=== PATIENT | male | born 1955 | race Caucasian/White ===

== ENCOUNTER 2017-11-04 11:54 | Inpatient (IN) | payer OTHER ==
[2017-11-04 12:31] LABS: PLATELET COUNT 504 10^3/uL (150-400)
[2017-11-04] MEDS ORDERED: NS 1,000 ML IV ONE ×3 (12:40→15:30)
[2017-11-04] MEDS ORDERED: IOPAMIDOL (ISOVUE-300) 100 ML BTL ONE (13:13)
--- NOTE | 2017-11-04 13:21 | EDPHY ---
H & P Stated Complaint: Constipation Time Seen by Provider: 11/04/17 12:08 HPI/ROS: This patient reports crampy abdominal pain starting 8 days prior to arrival with decreased appetite. Prior to that he had had 1 month history of loose stools 6 times a day and then for 2 weeks described small amount of bright red blood per rectum. Over the past week he has been unable to pass much stool. He had a very small bowel movement yesterday. He reports abdominal distension over this week gradually increasing in size and reports generalized crampy discomfort currently at a level of 2/10 in intensity. He vomited at nighttime after dinner for the last 5 nights. He still tolerating some breakfast and lunch but has decreased appetite. His brought him in for evaluation of the symptoms by private vehicle today. ROS: No fevers chills or other constitutional symptoms HEENT: No URI symptoms Pulmonary: No shortness of breath chest pain Cardiovascular: No chest pain or heart palpitations or lightheadedness. No lower extremity swelling GI: He reports minimal flatus over the past week. Other GI symptoms as per HPI : No testicular pain or swelling. No dysuria frequency urgency. No hematuria. Integumentary: No skin rash Endocrine: No complaints Psychiatric: No complaints Complete review of symptoms is otherwise negative. Source: Patient - Personal History Current Tetanus Diphtheria and Acellular Pertussis (TDAP): Yes - Medical/Surgical History PMH: Otherwise healthy Splenic injury with splenectomy at age 10 He has never had a colonoscopy. Hx Asthma: No Hx Chronic Respiratory Disease: No Hx Diabetes: No Hx Cardiac Disease: No Hx Renal Disease: No Hx Cirrhosis: No Hx Alcoholism: No Hx HIV/AIDS: No Hx Splenectomy or Spleen Trauma: Yes Other PMH: Spleenectomy, tonsils removed, - Family History Significant Family History: No pertinent family hx - Social History Smoking Status: Never smoked Alcohol Use: Rarely Drug Use: None - Physical Exam Exam: Normal vital signs General Appearance: Alert, no distress. Eyes: Pupils equal and round no pallor or injection. ENT, Mouth: Mucous membranes moist. Respiratory: There are no retractions, lungs are clear to auscultation. Cardiovascular: Regular rate and rhythm. Gastrointestinal: Positive moderate distension. Minimal diffuse tenderness. No focal tenderness. There is clean dry intact left upper quadrant surgical scar no organomegaly is appreciated. Back: No CVA tenderness : Circumcised penis with no urethral discharge or lesions. No testicle swelling or tenderness. No epididymal tenderness. Rectal exam: No external hemorrhoids. Patient has dark brown stool that is trace heme-positive on Hemoccult testing. There is no firm stool in the rectal vault. No fecal impaction Neurological: GCS 15 Skin: Warm and dry, no rashes. Extremities are symmetrical, full range of motion. Psychiatric: Mood and affect normal DIFFERENTIAL DIAGNOSIS: After history and physical exam differential diagnosis was considered for bowel obstruction, colon cancer, diverticulitis, adhesions from prior surgery, ulcer, appendicitis Constitutional: Initial Vital Signs Temperature (C) 36.4 C 11/04/17 11:59 Heart Rate 79 11/04/17 11:59 Respiratory Rate 12 11/04/17 11:59 Blood Pressure 132/97 H 11/04/17 11:59 O2 Sat (%) 93 11/04/17 11:59 O2 Delivery Mode Room Air Allergies/Adverse Reactions: No Known Allergies Allergy (Unverified 11/04/17 12:03) Home Medications: Medication Instructions Recorded NK [No Known Home Meds] 11/04/17 Medical Decision Making - Diagnostics EKG Interpretation: 12 lead EKG indication mild cardiomegaly on imaging and preop status performed at 3:14 p.m. Sinus rhythm at 72 Intervals: P R of 212, QRS of 152, QTC of 491 [place]: P of 60, QRS of -50, T of 9 Overall assessment: sinus rhythm with right bundle branch block Imaging Results: Imaging Impressions Abdomen X-Ray 11/04/17 12:41 Impression: 1. Borderline cardiac enlargement with basilar atelectasis and shallow inspiration. 2. Prominent colonic dilatation and a large amount of fecal material. Findings may reflect bowel obstruction. Abdomen CT 11/04/17 13:06 Impression: 1. Prominent colonic dilatation related to an obstructing sigmoid lesion, which is presumably a colon cancer. 2. See above report for additional findings. Results called and discussed with Kulwinder Sanchez M.D. on 11/04/2017 at 14:40 Three-view abdomen: Positive bowel obstruction by my interpretation Imaging: Discussed imaging studies w/ director call Radiologist (CT abdomen pelvis.), I viewed and interpreted images myself (Three-view abdominal x-ray) ED Course/Re-evaluation: IV normal saline bolus Patient declined analgesics. He denies any active nausea at this time. Review of labs reveals no significant abnormalities a CBC except mild elevation of platelets. Chemistries normal Urinalysis pending Given positive three-view abdomen with Hemoccult positive stools will proceed with abdominal CT with IV contrast evaluate for abdominal pathology including potential colon CA, diverticulitis or other CT abdomen pelvis with IV contrast findings are consistent with colon cancer of the distal sigmoid colon a lesion that is 6 x 4 cm in size with proximal obstruction. There is mild inflammatory changes in the immediate surrounding area. No obvious metastases. I discussed these findings with Dr. Demetri Middleton- radiologist. I spoke with Dr. muniz in [place]-general surgeon on-call for [facility] accepts patient for transfer. I spoke with patient has regarding today's findings of colon CA with bowel obstruction. He understands plan for admission and plan to remain NPO. I answered all their questions. Patient is stable time of discharge. Discussion: Patient with partial bowel obstruction near incomplete bowel obstruction from lesion to the distal sigmoid colon consistent with colon cancer without obvious evidence of metastases at this point. Patient is hemodynamically stable. He will be admitted for surgery and initial cancer evaluation. - Data Points Laboratory Results: Laboratory Results 11/04/17 12:13 11/04/17 12:13 11/04/17 11/04/17 11/04/17 14:35 12:40 12:13 WBC RBC Hgb Hct MCV MCH MCHC RDW Plt Count MPV Neut % (Auto) Lymph % (Auto) [place] % (Auto) Eos % (Auto) Baso % (Auto) Nucleat RBC Rel Count Absolute Neuts (auto) Absolute Lymphs (auto) Absolute Monos (auto) Absolute Eos (auto) Absolute Basos (auto) Absolute Nucleated RBC Immature Gran % Immature Gran # Sodium 138 mEq/L mEq/L (135-145) Potassium 4.0 mEq/L mEq/L (3.5-5.2) Chloride 91 mEq/L L mEq/L (97-110) Carbon Dioxide 29 mEq/l mEq/l (22-31) Anion Gap 18 mEq/L H mEq/L (8-16) BUN 12 mg/dL mg/dL (7-23) Creatinine 1.0 mg/dL mg/dL (0.7-1.3) Estimated GFR > 60 Glucose 97 mg/dL mg/dL (70-100) Calcium 9.1 mg/dL mg/dL (8.5-10.4) Total Bilirubin 0.8 mg/dL mg/dL (0.1-1.4) AST 35 IU/L IU/L (17-59) ALT 61 IU/L IU/L (21-72) Alkaline Phosphatase 48 IU/L IU/L (38-126) Total Protein 6.9 g/dL g/dL (6.3-8.2) Albumin 3.6 g/dL g/dL (3.5-5.0) Urine Color YELLOW Urine Appearance CLEAR Urine pH 6.0 (5.0-7.5) Ur Specific [place] <= 1.005 (1.002-1.030) Urine Protein NEGATIVE (NEGATIVE) Urine Ketones 1+ H (NEGATIVE) Urine Blood NEGATIVE (NEGATIVE) Urine Nitrate NEGATIVE (NEGATIVE) Urine Bilirubin NEGATIVE (NEGATIVE) Urine Urobilinogen 2.0 EU H EU (0.2-1.0) Ur Leukocyte Esterase NEGATIVE (NEGATIVE) Urine Glucose NEGATIVE (NEGATIVE) Stool Occult Bld Scrn POSITIVE H (NEGATIVE) 11/04/17 12:13 WBC 7.45 10^3/uL 10^3/uL (3.80-9.50) RBC 4.92 10^6/uL 10^6/uL (4.40-6.38) Hgb 16.4 g/dL g/dL (13.7-17.5) Hct 46.6 % % (40.0-51.0) MCV 94.7 fL fL (81.5-99.8) MCH 33.3 pg pg (27.9-34.1) MCHC 35.2 g/dL g/dL (32.4-36.7) RDW 13.1 % % (11.5-15.2) Plt Count 504 10^3/uL H 10^3/uL (150-400) MPV 8.9 fL fL (8.7-11.7) Neut % (Auto) 63.3 % % (39.3-74.2) Lymph % (Auto) 20.8 % % (15.0-45.0) Min[place] % (Auto) 14.8 % H % (4.5-13.0) Eos % (Auto) 0.3 % L % (0.6-7.6) Baso % (Auto) 0.4 % % (0.3-1.7) Nucleat RBC Rel Count 0.0 % % (0.0-0.2) Absolute Neuts (auto) 4.72 10^3/uL 10^3/uL (1.70-6.50) Absolute Lymphs (auto) 1.55 10^3/uL 10^3/uL (1.00-3.00) Absolute Monos (auto) 1.10 10^3/uL H 10^3/uL (0.30-0.80) Absolute Eos (auto) 0.02 10^3/uL L 10^3/uL (0.03-0.40) Absolute Basos (auto) 0.03 10^3/uL 10^3/uL (0.02-0.10) Absolute Nucleated RBC 0.00 10^3/uL 10^3/uL (0-0.01) Immature Gran % 0.4 % % (0.0-1.1) Immature Gran # 0.03 10^3/uL 10^3/uL (0.00-0.10) Sodium Potassium Chloride Carbon Dioxide Anion Gap BUN Creatinine Estimated GFR Glucose Calcium Total Bilirubin AST ALT Alkaline Phosphatase Total Protein Albumin Urine Color Urine Appearance Urine pH Ur Specific [place] Urine Protein Urine Ketones Urine Blood Urine Nitrate Urine Bilirubin Urine Urobilinogen Ur Leukocyte Esterase Urine Glucose Stool Occult Bld Scrn Medications Given: Discontinued Medications Sodium Chloride (Ns) 1,000 mls @ 0 mls/hr IV ONCE ONE; Wide Open PRN Reason: Protocol Stop: 11/04/17 12:41 Last Admin: 11/04/17 12:44 Dose: 1,000 mls Departure - Departure Disposition: [facility] Inpatient Acute Clinical Impression: Bowel obstruction Qualifiers: Intestinal obstruction type: other intestinal obstruction Intestinal obstruction extent: partial Qualified Code(s): K56.690 - Other partial intestinal obstruction Colon cancer Qualifiers: Colon location: sigmoid Qualified Code(s): C18.7 - Malignant neoplasm of sigmoid colon Condition: Fair
--- NOTE | 2017-11-04 15:15 | CPEKG ---
Heart Rate: 72 RR Interval: 833 P-R Interval: 212 QRSD Interval: 152 QT Interval: 448 QTC Interval: 491 P [place]: 60 QRS [place]: -50 T Wave [place]: 9 EKG Severity - ABNORMAL ECG - EKG Impression: SINUS RHYTHM EKG Impression: ATRIAL PREMATURE COMPLEX EKG Impression: RIGHT BUNDLE BRANCH BLOCK Electronically Signed By: Kulwinder Sanchez 04-Nov-2017 15:19:32
[2017-11-04] MEDS ORDERED: ERTAPENEM 1 GM VIAL IVP ONE ×2 (16:45→17:00)
--- NOTE | 2017-11-04 17:04 | PDGENHP ---
History and Physical - Chief Complaint Obstructing sigmoid mass - History of Present Illness This is a 62-year-old gentleman presents to the [facility] with signs of intestinal obstruction. Previous history is that of splenectomy for trauma at age 10. The patient has no other medical history takes no other medications. He has had difficulty keeping down food as of 3 days ago. He was able to take down breakfast and lunch but not dinner over the last 2 days and today is unable to keep anything down. He is very distended probably 4 times normal size. He is otherwise very active hiking on a regular basis. History Information - Allergies/Home Medication List Allergies/Adverse Reactions: No Known Allergies Allergy (Unverified 11/04/17 12:03) Home Medications: NK [No Known Home Meds] 11/04/17 [Last Taken Unknown] I have personally reviewed and updated: family history, medical history, social history, surgical history - Past Medical History no pertinent PMH - Surgical History Additional surgical history: Splenectomy for trauma - Family History Positive for: non-pertinent - Social History Smoking Status: Never smoked Alcohol Use: Rarely Drug Use: None Review of Systems Review of Systems: All others reviewed and are negative Gastrointestinal: Reports: vomitting, abdominal distention Physical Exam Physical Exam: Alert oriented no distress Regular rate and rhythm Clear to auscultation bilaterally Abdomen soft distended well-healed upper left quadrant scar. No masses no hepatosplenomegaly Extremities without edema 2+ over 2+ peripheral pulses No cervical supraclavicular or inguinal adenopathy No skin rashes Neurologically intact Temp Pulse Resp BP Pulse Ox 36.8 C 67 16 127/87 H 93 11/04/17 16:21 11/04/17 16:21 11/04/17 16:21 11/04/17 16:21 11/04/17 16:21 Lab Data & Imaging Review 11/04/17 12:13 11/04/17 12:13 WBC 7.45 10^3/uL (3.80-9.50) 11/04/17 12:13 RBC 4.92 10^6/uL (4.40-6.38) 11/04/17 12:13 Hgb 16.4 g/dL (13.7-17.5) 11/04/17 12:13 Hct 46.6 % (40.0-51.0) 11/04/17 12:13 MCV 94.7 fL (81.5-99.8) 11/04/17 12:13 MCH 33.3 pg (27.9-34.1) 11/04/17 12:13 MCHC 35.2 g/dL (32.4-36.7) 11/04/17 12:13 RDW 13.1 % (11.5-15.2) 11/04/17 12:13 Plt Count 504 10^3/uL (150-400) H 11/04/17 12:13 MPV 8.9 fL (8.7-11.7) 11/04/17 12:13 Neut % (Auto) 63.3 % (39.3-74.2) 11/04/17 12:13 Lymph % (Auto) 20.8 % (15.0-45.0) 11/04/17 12:13 [place] % (Auto) 14.8 % (4.5-13.0) H 11/04/17 12:13 Eos % (Auto) 0.3 % (0.6-7.6) L 11/04/17 12:13 Baso % (Auto) 0.4 % (0.3-1.7) 11/04/17 12:13 Nucleat RBC Rel Count 0.0 % (0.0-0.2) 11/04/17 12:13 Absolute Neuts (auto) 4.72 10^3/uL (1.70-6.50) 11/04/17 12:13 Absolute Lymphs (auto) 1.55 10^3/uL (1.00-3.00) 11/04/17 12:13 Absolute Monos (auto) 1.10 10^3/uL (0.30-0.80) H 11/04/17 12:13 Absolute Eos (auto) 0.02 10^3/uL (0.03-0.40) L 11/04/17 12:13 Absolute Basos (auto) 0.03 10^3/uL (0.02-0.10) 11/04/17 12:13 Absolute Nucleated RBC 0.00 10^3/uL (0-0.01) 11/04/17 12:13 Immature Gran % 0.4 % (0.0-1.1) 11/04/17 12:13 Immature Gran # 0.03 10^3/uL (0.00-0.10) 11/04/17 12:13 Sodium 138 mEq/L (135-145) 11/04/17 12:13 Potassium 4.0 mEq/L (3.5-5.2) 11/04/17 12:13 Chloride 91 mEq/L (97-110) L 11/04/17 12:13 Carbon Dioxide 29 mEq/l (22-31) 11/04/17 12:13 Anion Gap 18 mEq/L (8-16) H 11/04/17 12:13 BUN 12 mg/dL (7-23) 11/04/17 12:13 Creatinine 1.0 mg/dL (0.7-1.3) 11/04/17 12:13 Estimated GFR > 60 11/04/17 12:13 Glucose 97 mg/dL (70-100) 11/04/17 12:13 Calcium 9.1 mg/dL (8.5-10.4) 11/04/17 12:13 Total Bilirubin 0.8 mg/dL (0.1-1.4) 11/04/17 12:13 AST 35 IU/L (17-59) 11/04/17 12:13 ALT 61 IU/L (21-72) 11/04/17 12:13 Alkaline Phosphatase 48 IU/L (38-126) 11/04/17 12:13 Total Protein 6.9 g/dL (6.3-8.2) 11/04/17 12:13 Albumin 3.6 g/dL (3.5-5.0) 11/04/17 12:13 Urine Color YELLOW 11/04/17 14:35 Urine Appearance CLEAR 11/04/17 14:35 Urine pH 6.0 (5.0-7.5) 11/04/17 14:35 Ur Specific [place] <= 1.005 (1.002-1.030) 11/04/17 14:35 Urine Protein NEGATIVE (NEGATIVE) 11/04/17 14:35 Urine Ketones 1+ (NEGATIVE) H 11/04/17 14:35 Urine Blood NEGATIVE (NEGATIVE) 11/04/17 14:35 Urine Nitrate NEGATIVE (NEGATIVE) 11/04/17 14:35 Urine Bilirubin NEGATIVE (NEGATIVE) 11/04/17 14:35 Urine Urobilinogen 2.0 EU (0.2-1.0) H 11/04/17 14:35 Ur Leukocyte Esterase NEGATIVE (NEGATIVE) 11/04/17 14:35 Urine Glucose NEGATIVE (NEGATIVE) 11/04/17 14:35 Stool Occult Bld Scrn POSITIVE (NEGATIVE) H 11/04/17 12:40 Imaging Review: CT scan personally reviewed on PACS. Sigmoid colon obstruction midportion of the sigmoid with proximal colonic and small bowel dilatation. Surgical absence of spleen EKG Interpretation: Positive for: right bundle branch block Assessment & Plan Assessment: Bowel obstruction (Acute) Colon cancer likely Plan: Sigmoid colectomy possible colostomy. The risks benefits and alternatives to surgery have been outlined to the patient. Verbal confirmation of understanding was obtained. All questions were answered. The patient will have Ertepenam preoperatively LR.
[2017-11-04] MEDS ORDERED: BUPIVACAINE 0.5% 30 ML SDV ONE (17:26)
[2017-11-04] MEDS ORDERED: LIDOCAINE 1% 300 MG/30 ML SDV ONE (17:26)
[2017-11-04] MEDS ORDERED: MIDAZOLAM 2 MG/2 ML VIAL IVP ONE (17:43)
[2017-11-04] MEDS ORDERED: MIDAZOLAM 2 MG/2 ML VIAL ONE (17:44)
--- NOTE | 2017-11-04 17:45 | PDANEPAE ---
ANE History of Present Illness bowel obstruction s/f resection ANE Past Medical History - Pulmonary History Hx Oxygen in Use at Home: No Hx Sleep Apnea: No Sleep Apnea Screening Result - Last Documented: Negative - Endocrine History Hx Diabetes: No ANE Review of Systems Review of Systems: - Exercise capacity Exercise capacity: >=4 METS ANE Patient History - Allergies Allergies/Adverse Reactions: No Known Allergies Allergy (Unverified 11/04/17 12:03) - Home Medications Home Medications: NK [No Known Home Meds] 11/04/17 [Last Taken Unknown] - NPO status NPO Status: no food or drink >8 hours NPO Since - Liquids (Date): 11/04/17 NPO Since - Liquids (Time): 00:05 NPO Since - Solids (Date): 11/04/17 NPO Since - Solids (Time): 00:05 - Anes Hx Anes Hx: no prior problems - Smoking Hx Smoking Status: Never smoked - Alcohol Use Alcohol Use: Rarely ANE Labs/Vital Signs - Labs Result Diagrams: 11/04/17 12:13 11/04/17 12:13 - Vital Signs Blood Pressure: 127/87 Heart Rate: 67 Respiratory Rate: 16 O2 Sat (%): 93 Height: 180.34 cm Weight: 83.915 kg ANE Physical Exam - Airway Mallampati Score: Class 1 Mouth exam: normal dental/mouth exam - Pulmonary Pulmonary: no respiratory distress - Cardiovascular Cardiovascular: regular rate and rhythym - ASA Status ASA Status: I, E ANE Anesthesia Plan Anesthesia Plan: general endotracheal anesthesia
[2017-11-04] MEDS ORDERED: fentaNYL 100 MCG/2 ML INJ ONE (17:56)
[2017-11-04] MEDS ORDERED: PROPOFOL/EMULSION 500 MG/50 ML BOTTLE IV ONE (17:56)
[2017-11-04] MEDS ORDERED: LIDOCAINE 2% 100 MG/5 ML SYR ONE (17:57)
[2017-11-04] MEDS ORDERED: ROCURONIUM 50 MG/5 ML VIAL ONE ×2 (17:59→19:06)
[2017-11-04] MEDS ORDERED: ONDANSETRON 4 MG/2 ML VIAL ONE (18:13)
[2017-11-04] MEDS ORDERED: DEXAMETHASONE 4 MG/ML VIAL ONE ×2 (18:13)
[2017-11-04] MEDS ORDERED: PROPOFOL 200 MG/20 ML VIAL ONE (19:22)
[2017-11-04] MEDS ORDERED: SUGAMMADEX SODIUM 200 MG/2 ML VIAL IVP ONE (20:14)
[2017-11-04] MEDS ORDERED: HYDROCODONE/APAP 5/325 TAB PO PRN (20:33)
[2017-11-04] MEDS ORDERED: PHENYLEPHRINE HCL 100 MCG/ML SYR IVP PRN (20:33)
[2017-11-04] MEDS ORDERED: METOCLOPRAMIDE 10 MG/2 ML VIAL IVP PRN (20:33)
[2017-11-04] MEDS ORDERED: MEPERIDINE 25 MG/ML SYR IVP PRN (20:33)
[2017-11-04] MEDS ORDERED: ALBUTEROL 3 ML DEYVIAL IH PRN (20:33)
[2017-11-04] MEDS ORDERED: LABETALOL HCL 5 MG/ML 20 ML MDV IVP PRN (20:33)
[2017-11-04] MEDS ORDERED: HYDROmorphONE/DILAUDID 1 MG/ML INJ IVP PRN (20:33)
[2017-11-04] MEDS ORDERED: OXYCODONE/APAP 5/325 TAB PO PRN (20:33)
[2017-11-04] MEDS ORDERED: fentaNYL 100 MCG/2 ML INJ IVP PRN (20:33)
[2017-11-04] MEDS ORDERED: ACETAMINOPHEN 500 MG TAB PO PRN (20:33)
[2017-11-04] MEDS ORDERED: PROMETHAZINE HCL 25 MG/ML INJ IVP PRN (20:33)
[2017-11-04] MEDS ORDERED: ONDANSETRON 4 MG/2 ML VIAL IVP PRN ×2 (20:33→21:11)
[2017-11-04] MEDS ORDERED: LR 500 ML IV PRN (20:33)
[2017-11-04] MEDS ORDERED: NALOXONE HCL 0.4 MG/ML INJ IVP PRN (20:33)
[2017-11-04] MEDS ORDERED: DEXAMETHASONE 4 MG/ML VIAL IVP PRN (20:33)
--- NOTE | 2017-11-04 20:35 | POSTANESTH ---
Post Anesthetic Evaluation Cardiovascular Status: Normal, Stable (mild HTN), Tx Hyper/Hypo-tension Respiratory Status: Similar to Pre-op Cond. Level of Consciousness/Mental Status: Can Participate in Eval, Mildly Sleepy, Arousable Pain Control: Adequate, Prn Tx Ordered Nausea/Vomiting Control: Adequate, Prn Tx Ordered Complications Possibly Related to Anesthesia: None Noted
--- NOTE | 2017-11-04 21:05 | POSTOPPROG ---
Post Op Note Date of Operation: 11/04/17 Surgeon: Norberto Madden Injury Prevention Coordinator: Dewayne Hernandez Anesthesia: GET(General Endotracheal) Pre-op Diagnosis: intestinal obstruction Post-op Diagnosis: sigmoid colon mass Procedure: open sigmoid colectomy with takedown spenic flexure Inf/Abcess present in the surg proc area at time of surgery?: Yes Depth: Organ Space EBL: 50-100 Specimen(s): sigmoid colon proximal with stitch proximal donut (suture) distal donut
[2017-11-04] MEDS ORDERED: oxyCODONE IR 5 MG TAB PO PRN (21:14)
[2017-11-04] MEDS: LR 1,000 ML IV SCH (21:57)
--- NOTE | 2017-11-05 00:32 | GOP ---
[f rep st] OPERATIVE REPORT DATE OF OPERATION: 11/04/2017 SURGEON: Norberto Madden MD ENVIRONMENTAL MAINTENANCE WORKER: ADAL Mancera. Use of a 1st assist is standard and necessary for the safety of the c ase. ANESTHESIA: General endotracheal anesthesia was used. ANESTHESIOLOGIST: Castillo Guerrero MD. PREOPERATIVE DIAGNOSIS: Sigmoid mass. POSTOPERATIVE DIAGNOSIS: Sigmoid mass. PROCEDURE PERFORMED: Sigmoid colectomy with low anterior anastomosis and splenic flexure takedown. FINDINGS: SPECIMENS: Sigmoid colon, stitch on the proximal aspect, as well as proximal and distal doughnuts. ESTIMATED BLOOD LOSS: Approximately 100 cc. INDICATIONS: This 62-year-old gentleman presents with obstructing sigmoid colon lesion, likely colon cancer. DESCRIPTION OF PROCEDURE: Patient was brought into the operating room, after induction of endotrache al anesthesia, in a supine position, abdomen was prepped with chlorhexidine. Patient was then placed in low lithotomy with Coleman catheter. Proper prep with chlorhexidine was performed, and draped ster ilely. Time-out procedure was then performed according to institutional standards. Local anesthetic was infused in skin and subcutaneous tissues of the lower abdomen. Laparotomy incision was made and deepened with electrocautery. The mass was fixed to the bladder anteriorly, and dissection of the m ass from the bladder was performed with blunt and sharp dissection. The white line of [place] was mobi lized. The splenic flexure was then taken down. The ureter was identified on the left. After insur ing mobility of the colon on the left, the GI 75 stapler was used to divide the rectum after creating a window between the rectum and the mesoappendix. The colon mesentery and rectal mesentery were the n controlled using LigaSure. The pedicle of the inferior mesenteric vessel was identified and divide d using bipolar energy. It was oversewn with 3-0 Vicryl suture. Specimen was passed off. Attempts to decompress the colon using an NG tube and pulled sucker were not well done because the colon proxi j luis was distended. Due to the health of the colon and the good mobilization, it was felt that a si de-to-end anastomosis could be performed safely. After ensuring good blood supply, the colon was ope nely, and an EEA 29 stapler was used to go through the antimesenteric surface of the proximal colon. A GI 75 was then used to divide the colon and close the distal end of the descending colon. A descen ding colon to rectal anastomosis then performed using the anvil through the rectum. Airtight anastom osis was ensured, testing under water. After testing, the area was ensured to be hemostatic. The ab domen was irrigated and aspirated. Drapes had been used to protect the wound. These were removed, a nd the fascia was then closed using 0 PDS. The skin was reapproximated using gabriela intermittently with Betadine wick. Sterile dressing was applied. Patient was awakened, extubated, and taken to rec overy room in stable condition. Needle, instrument, and sponge counts were verified to be correct x2 . /[id number]/MODL
[2017-11-05] MEDS: KETOROLAC 15 MG/1 ML SDV IVP SCH ×5 (00:47→23:52)
[2017-11-05 05:09] LABS: PLATELET COUNT 441 10^3/uL (150-400)
[2017-11-05] MEDS: LR 1,000 ML IV SCH ×2 (06:24→12:29)
[2017-11-05] MEDS: ENOXAPARIN 40 MG/0.4 ML SYR SC SCH (08:41)
--- NOTE | 2017-11-05 08:59 | SOAPPROG ---
SOAP Progress Note Assessment/Plan: Assessment/Plan: 62 yo male with obstructing sigmoid lesion presumable cancer POD#1 s/p open sigmoid colectomy with Low anterior anastomosis OOB Multiple loose BM Minimal pain Expected leucocytosis RRR CTA abd less distended. NT No edema CEA 1.68 11/04 Doing well Clear liq diet D/C hernandez if u/o remains > 0.5 ml/kg/hr Encourage ambulation/IS 11/05/17 08:56 Objective: Vital Signs Temp Pulse Resp BP Pulse Ox 36.4 C 86 14 101/67 90 L 11/05/17 07:58 11/05/17 07:58 11/05/17 07:58 11/05/17 07:58 11/05/17 07:58 Laboratory Results 11/05/17 04:59 11/05/17 04:59 11/04/17 11/05/17 11/06/17 05:59 05:59 05:59 Intake Total 3300 882 Output Total 1350 Balance 1950 882 ICD10 Worksheet Patient Problems: Problems Problem Status Onset Bowel obstruction Acute Colon cancer Acute
--- NOTE | 2017-11-05 09:59 | ASMTCMCOM ---
CM Note CM Note Notes: Chart reviewed. Patient admitted for surgical intervention of bowel obstruction, Normally Independent. Therapies pending. CM to follow. Date Signed: 11/05/2017 09:58 AM Electronically Signed By:Cha Hamlin RN
[2017-11-06] MEDS: KETOROLAC 15 MG/1 ML SDV IVP SCH ×4 (06:17→23:36)
[2017-11-06] MEDS: ENOXAPARIN 40 MG/0.4 ML SYR SC SCH (08:05)
--- NOTE | 2017-11-06 13:21 | SOAPPROG ---
SOAP Progress Note Assessment/Plan: Assessment/Plan: 62 yo male with obstructing sigmoid lesion presumable cancer POD#2 s/p open sigmoid colectomy with Low anterior anastomosis OOB Multiple loose BM Minimal pain Expected leucocytosis. Tolerated a regular diet RRR CTA abd less distended. NT No edema Doing well Advance to regular diet Avoided after urinary catheter was removed Encourage ambulation/IS 11/05/17 08:56 11/06/17 13:20 Objective: Vital Signs Temp Pulse Resp BP Pulse Ox 36.9 C 99 16 110/67 92 11/06/17 12:00 11/06/17 12:00 11/06/17 12:00 11/06/17 12:00 11/06/17 12:00 Laboratory Results 11/05/17 04:59 11/05/17 04:59 11/05/17 11/06/17 11/07/17 05:59 05:59 05:59 Intake Total 3300 882 Output Total 1350 400 Balance 1950 482 ICD10 Worksheet Patient Problems: Problems Problem Status Onset Bowel obstruction Acute Colon cancer Acute
[2017-11-06 22:44] VITALS: TEMP 98.4
[2017-11-07] MEDS: KETOROLAC 15 MG/1 ML SDV IVP SCH ×2 (05:08→13:54)
[2017-11-07 05:14] LABS: PLATELET COUNT 414 10^3/uL (150-400)
[2017-11-07] MEDS ORDERED: POTASSIUM CL 20 MEQ TAB PO ONE (08:17)
--- NOTE | 2017-11-07 08:41 | SOAPPROG ---
SOAP Progress Note Assessment/Plan: Assessment/Plan: 62 yo male with obstructing sigmoid lesion presumable cancer POD#3 s/p open sigmoid colectomy with Low anterior anastomosis OOB Multiple loose BM Minimal pain Expected leucocytosis. Tolerated a regular diet RRR CTA abd less distended. NT Incision mild erythema ? wound infection No edema Doing well Hypokalemia - replace with 40meQ and recheck prior to d/c D/C home f/u 1 week Encourage ambulation/IS 11/05/17 08:56 11/06/17 13:20 11/07/17 08:39 Objective: Vital Signs Temp Pulse Resp BP Pulse Ox 36.9 C 79 16 93/74 L 93 11/07/17 04:00 11/07/17 04:00 11/07/17 04:00 11/07/17 04:00 11/07/17 04:00 Laboratory Results 11/07/17 04:46 11/07/17 04:46 11/06/17 11/07/17 11/08/17 05:59 05:59 05:59 Intake Total 882 300 Output Total 400 Balance 482 300 ICD10 Worksheet Patient Problems: Problems Problem Status Onset Bowel obstruction Acute Colon cancer Acute
[2017-11-07] MEDS: ENOXAPARIN 40 MG/0.4 ML SYR SC SCH ×2 (08:44→13:54)
[2017-11-07 09:22] VITALS: BP 111/72; PULSE 84; RESP 18; O2SAT 95
--- NOTE | 2017-11-08 09:21 | ASDISCHSUM ---
Discharge Information Plan Status:Home with No Needs Medically Cleared to Leave:11/06/2017 Discharge Date:11/07/2017 02:45 PM CM D/C Disposition: ADT D/C Disposition:Home, Routine, Self-Care Projected Discharge Date:11/07/2017 12:00 AM Transportation at D/C: Discharge Delay Reason: Follow-Up Date:11/07/2017 12:00 AM Discharge Slot: Final Diagnosis: Placement Information Patient Contact Information Contact Name:MANUEL Relationship:Friend Address:[address] Work Phone: City:[place] Alternate Phone: [facility]/Zip Code:[place] [address] Email: Financial Information Financial Class:[facility] Primary Plan Desc:AJIT O HMO OPEN ACC LOCAL Primary Plan Number:[id number] Secondary Plan Desc: Secondary Plan Number: Assessment Information [facility] CM Progress Note CM Note CM Note Notes: Chart reviewed. Patient admitted for surgical intervention of bowel obstruction, Normally Independent. Therapies pending. CM to follow. Date Signed: 11/05/2017 09:58 AM Electronically Signed By:Cha Hamlin RN Intervention Information
== END 2017-11-07 14:45 | disposition home or self-care (01) | DRG 331 ==
LOC: CED 11:54 → CEDHOLD 14:46 → F3E 16:04
PROVIDERS: ADMIT Surgery; ATTEND Surgery
PROC: 0DTN0ZZ Resection of Sigmoid Colon, Open Approach (ICD-10-PCS; principal; 2017-11-04 17:30)
DX: C18.7 Malignant neoplasm of sigmoid colon (principal)
CPT/HCPCS: 74022-PO; 74177-PO; 80053-PO; 81003-PO; 82270-PO; 85025-PO; J1100; J1335; J1650; J1885; J2001; J2250; J2405; J2704; J3010; Q9967

== ENCOUNTER 2017-11-14 09:39 | Observation (INO) | payer OTHER ==
--- NOTE | 2017-11-14 10:45 | PDGENHP ---
History & Physical Chief Complaint: Wound dehiscence History of Present Illness: 62 yo man recently admitted for sigmod colon obstruction s/p LAR presents for post op after lifting heavy object Pertinent Past, Social, Family History: + ETOH, neg Relevant Physical Exam: RRR. CTA. Abd soft no peritoneal signs. Low midline wound fascial dehiscence Cardiorespiratory Assessment: RRR. CTA
[2017-11-14] MEDS ORDERED: ceFAZolin 2 GM/SWFI 2 GM/20 ML SYR IVP ONE (11:13)
[2017-11-14] MEDS ORDERED: BUPIVACAINE 0.5% 30 ML SDV ONE (11:13)
[2017-11-14] MEDS ORDERED: LIDOCAINE 1% 2 ML INJ ID PRN (11:14)
[2017-11-14] MEDS ORDERED: MIDAZOLAM 2 MG/2 ML VIAL IVP ONE (11:16)
[2017-11-14] MEDS ORDERED: ONDANSETRON 4 MG/2 ML VIAL IVP PRN (11:17)
[2017-11-14] MEDS ORDERED: NALOXONE HCL 0.4 MG/ML INJ IVP PRN (11:17)
[2017-11-14] MEDS ORDERED: NS 500 ML IV PRN (11:17)
[2017-11-14] MEDS ORDERED: ALBUTEROL 3 ML DEYVIAL IH PRN (11:17)
[2017-11-14] MEDS ORDERED: METOCLOPRAMIDE 10 MG/2 ML VIAL IVP PRN (11:17)
[2017-11-14] MEDS ORDERED: PROMETHAZINE HCL 25 MG/ML INJ IVP PRN (11:17)
[2017-11-14] MEDS ORDERED: MEPERIDINE 25 MG/ML SYR IVP PRN (11:17)
[2017-11-14] MEDS ORDERED: HYDROmorphONE/DILAUDID 1 MG/ML INJ IVP PRN (11:17)
[2017-11-14] MEDS ORDERED: fentaNYL 100 MCG/2 ML INJ IVP PRN (11:17)
[2017-11-14] MEDS ORDERED: DEXAMETHASONE 4 MG/ML VIAL IVP PRN (11:17)
--- NOTE | 2017-11-14 11:17 | PDANEPAE ---
ANE History of Present Illness here for abd wound closure ANE Past Medical History - Cardiovascular History Hx Hypertension: No Hx Arrhythmias: No Hx Chest Pain: No Hx Coronary Artery / Peripheral Vascular Disease: No Hx CHF / Valvular Disease: No Hx Palpitations: No - Pulmonary History Hx COPD: No Hx Asthma/Reactive Airway Disease: No Hx Recent Upper Respiratory Infection: No Hx Oxygen in Use at Home: No Hx Sleep Apnea: No - Endocrine History Hx Diabetes: No ANE Review of Systems Review of systems is: negative Review of Systems: - Exercise capacity Exercise capacity: >=4 METS ANE Patient History - Allergies Allergies/Adverse Reactions: No Known Allergies Allergy (Unverified 11/04/17 12:03) - Home Medications Home medications: none - NPO status NPO Status: no food or drink >8 hours - Anes Hx Anes Hx: no prior problems - Smoking Hx Smoking Status: Never smoked ANE Labs/Vital Signs - Labs Result Diagrams: 11/14/17 11:25 11/14/17 11:25 ANE Physical Exam - Airway Neck exam: FROM Mallampati Score: Class 1 - Pulmonary Pulmonary: no respiratory distress - Cardiovascular Cardiovascular: regular rate and rhythym - ASA Status ASA Status: II ANE Anesthesia Plan Anesthesia Plan: GA with mask
[2017-11-14] MEDS: LR 1,000 ML IV SCH ×2 (11:35→14:19)
[2017-11-14] MEDS ORDERED: fentaNYL 100 MCG/2 ML INJ ONE (11:39)
[2017-11-14 11:40] LABS: PLATELET COUNT 559 10^3/uL (150-400)
[2017-11-14] MEDS ORDERED: PROPOFOL/EMULSION 500 MG/50 ML BOTTLE IV ONE ×2 (11:40→12:04)
[2017-11-14] MEDS ORDERED: LIDOCAINE 1% 300 MG/30 ML SDV ONE (12:01)
--- NOTE | 2017-11-14 13:13 | GOP ---
[f rep st] OPERATIVE REPORT DATE OF OPERATION: 11/14/2017 SURGEON: Norberto Madden MD ANESTHESIA: Monitored anesthesia care and local anesthesia were used. ANESTHESIOLOGIST: Dr. Levy. PREOPERATIVE DIAGNOSIS: Wound dehiscence. POSTOPERATIVE DIAGNOSIS: Wound dehiscence. PROCEDURE PERFORMED: Wound closure. FINDINGS: Fascial dehiscence and previous sutures pulled through but still intact. SPECIMENS: None. ESTIMATED BLOOD LOSS: Less than 10 mL. INDICATIONS: This is a 62-year-old gentleman who presents with wound dehiscence after previous colec hailey 10 days ago for obstructing colon cancer. The patient has had protein calorie malnutrition and we discussed closure of the wound without fascial closure except in a hernia to be fixed later. DESCRIPTION OF PROCEDURE: Patient brought to the operating room. After induction of IV sedation, hi s abdomen was prepped with Betadine and draped sterilely. Time-out procedure was then performed acco rding to institutional standards. Local anesthetic 0.5% Marcaine, 1% Xylocaine were infused into the skin and subcutaneous tissues and irrigation of the wound was done with 2 L of saline. The wound was then closed in layers, for the deep tissue almost to the fascia, was closed and reapproximated using [id number] with 2-0 Vicryl suture. The deep dermis was reapproximated with interrupted dermal sutures, and the skin was reapproximated using interrupted 2-0 nylon vertical mattress sutures. Jeffrey ssing was applied. The patient was awakened. Needle, instrument and sponge counts were verified to b e correct. The patient was then taken to recovery room in stable condition. No immediate complicati ons. COMPLICATIONS: None. FLUIDS GIVEN: 800 cc crystalloid. /[id number]/MODL
[2017-11-14] MEDS ORDERED: oxyCODONE IR 5 MG TAB PO PRN (13:20)
[2017-11-14] MEDS ORDERED: ACETAMINOPHEN 325 MG TAB PO PRN (13:20)
[2017-11-14 17:24] VITALS: BP 125/78; PULSE 73; RESP 14; TEMP 98.1; O2SAT 99
[2017-11-14] MEDS ORDERED: KETOROLAC 15 MG/1 ML SDV IVP SCH (18:00)
--- NOTE | 2017-11-15 09:24 | ASDISCHSUM ---
Discharge Information Plan Status: Medically Cleared to Leave: Discharge Date:11/14/2017 05:34 PM CM D/C Disposition: ADT D/C Disposition:Home, Routine, Self-Care Projected Discharge Date:11/14/2017 05:34 PM Transportation at D/C: Discharge Delay Reason: Follow-Up Date:11/14/2017 05:34 PM Discharge Slot: Final Diagnosis: Placement Information Patient Contact Information Contact Name:MANUEL Relationship:Friend Address:[address] [place] Work Phone: City:[place] [facility] Phone: State/[place] Code:[place] [address] Email: Financial Information Financial Class:[facility] Primary Plan Desc:[employer] PPO HMO OPEN ACC LOCAL Primary Plan Number:[id number] Secondary Plan Desc: Secondary Plan Number: Assessment Information Intervention Information
--- NOTE | 2017-11-18 10:49 | GDS ---
[f rep st] DISCHARGE SUMMARY This is a 62-year-old gentleman who presented last week with colon cancer, underwent open colon resection. Patient went home and [place] and had a wound dehiscence. He presented to the office and was brought to the hospital for urgent repair. The patient had his wound treated with surgical debridement and closure, and he is being discharged on the same day of admission. On his baseline medications. He is taking no narcotics. There were no complications of this hospital stay. /[id number]/MODL MTDD
== END 2017-11-14 17:34 | disposition home or self-care (01) ==
LOC: F3E 11:04
PROVIDERS: ADMIT Surgery; ATTEND Surgery
PROC: 0HQ7XZZ Repair Abdomen Skin, External Approach (ICD-10-PCS; principal; 2017-11-14 11:30)
DX: T81.31XA Disruption of external operation (surgical) wound, not elsewhere classified, initial encounter (principal); X50.0XXA Overexertion from strenuous movement or load, initial encounter; C18.7 Malignant neoplasm of sigmoid colon
CPT/HCPCS: J0690; J2250; J2704; J3010